=== PATIENT | male | born 1950 | race Caucasian/White ===

== ENCOUNTER 2017-01-06 11:24 | Emergency (ER) | payer SELFPAY ==
[2017-01-06] MEDS ORDERED: Acetaminophen TAB* 325 MG PO ONE (11:53)
--- NOTE | 2017-01-06 12:28 | ED ---
Upper Extremity Pain - HPI Summary HPI Summary: Patient presents after falling approximately 8 feet off a ladder. The ladder slid sideways when he went to step onto it. He tried to grab onto a sign with his left hand as it slide down the building. He landed on his feet and his back. He denies LOC or hitting his head. He got up after the fall and drove himself to the ED for evaluation. He has not taken anything for pain. He has pain on his upper back on both sides of his thoracic spine. His left hand hurts and he has altered sensation in the middle digit. He has an extensive history of hand and back injuries in the past. He is right handed. - History of Current Complaint Chief Complaint: EDExtremityUpper Stated Complaint: FALL OFF LADDER/BACK AND LT HANDPAIN Time Seen by Provider: 01/06/17 11:33 Hx Obtained From: Patient Mechanism Of Injury: Fall From Height Of: - approximately 8 feet Onset/Duration: Started Hours Ago Timing: Constant Severity Initially: Moderate Severity Currently: Moderate Pain Location: Hand - left Character: Dull, Aching Aggravating Factor(s): Movement Alleviating Factor(s): Rest Associated Signs & Symptoms: Positive: Back Pain. Negative: Chest Pain, Neck Pain Related History: Dominant Hand Right - Allergies/Home Medications Allergies/Adverse Reactions: Allergies Allergy/AdvReac Type Severity Reaction Status Date / Time Propoxyphene [From Darvon] AdvReac Nausea And Verified 01/06/17 11:46 Vomiting Home Medications: Home Medications Aspirin EC TAB* 325 mg PO DAILY 01/06/17 [History Confirmed 01/06/17] Atenolol TAB* 10 mg PO DAILY 01/06/17 [History Confirmed 01/06/17] Lisinopril TAB* 20 mg PO DAILY 01/06/17 [History Confirmed 01/06/17] Nitroglycerin TAB 0.4 MG* 1 tab PO SEE INSTRUCTIONS PRN 01/06/17 [History Confirmed 01/06/17] Omeprazole CAP* 1 cap PO DAILY 01/06/17 [History Confirmed 01/06/17] Tylenol 8 Hour Arthritis 1 tab PO Q8HR 01/06/17 [History Confirmed 01/06/17] Vitamin D TAB* 1 tab PO DAILY 01/06/17 [History Confirmed 01/06/17] PMH/Surg Hx/FS Hx/Imm Hx Previously Healthy: Yes Infectious Disease History: No Infectious Disease History: Denies: Traveled Outside the [place] in Last 30 Days - Family History Known Family History: Positive: Cardiac Disease, Hypertension - Social History Occupation: Employed Full-time Lives: With Family Alcohol Use: Occasionally Substance Use Type: Reports: None Smoking Status (MU): Former Smoker Review of Systems Negative: Fever, Chills Negative: Chest Pain Negative: Shortness Of Breath Negative: Abdominal Pain Positive: Myalgia - thoracic aspect of back lateral aspect bilaterally Positive: Paresthesia - left middle digit. Negative: Weakness, Numbness All Other Systems Reviewed And Are Negative: Yes Physical Exam Triage Information Reviewed: Yes Vital Signs On Initial Exam: Initial Vitals Temp Pulse Resp BP Pulse Ox 97.0 F 65 20 151/78 97 01/06/17 11:27 01/06/17 11:27 01/06/17 11:27 01/06/17 11:27 01/06/17 11:27 Vital Signs Reviewed: Yes Appearance: Positive: Well-Appearing, Well-Nourished, Pain Distress Skin: Positive: Warm, Skin Color Reflects Adequate Perfusion, Dry, Soft Head/Face: Positive: Normal Head/Face Inspection Eyes: Positive: EOMI, JAMIE, Conjunctiva Clear ENT: Positive: Hearing grossly normal Neck: Positive: Supple, Nontender Respiratory/Lung Sounds: Positive: Clear to Auscultation, Breath Sounds Present Cardiovascular: Positive: RRR Musculoskeletal: Positive: Limited @ - all digits of left hand move, but unable to form a loose fist; FROM bilateratal upper extremities, Pain @ - hypersensitivity to light touch on dorsum of left hand; TTP bilateral aspect of thoracic spine Neurological: Positive: Sensory/Motor Intact, Alert, Oriented to Person Place, Time, [place] Bundle Intact Distally, Normal Gait Psychiatric: Positive: Affect/Mood Appropriate AVPU Assessment: Alert - [place] Coma Scale Coma Scale Total: 15 Diagnostics - Vital Signs Vital Signs Temp Pulse Resp BP Pulse Ox 01/06/17 11:27 97.0 F 65 20 151/78 97 - Laboratory Lab Statement: Any lab studies that have been ordered have been reviewed, and results considered in the medical decision making process. - Radiology No standard instances Xray Interpretation: No Acute Changes Radiology Interpretation Completed By: Radiologist Course/Dx - Diagnoses Differential Diagnosis/HQI/PQRI: Positive: Arthritis, Bursitis, Contusion, Fracture (Closed), Hematoma, Strain, Sprain Provider Diagnoses: Contusion of left hand, Contusion of back wall of thorax Discharge - Discharge Plan Condition: Stable Disposition: HOME Patient Education Materials: Rib Contusion (ED), Contusion in Adults (ED) Forms: *Work Release Additional Instructions: Please use Tylenol and ice to help with pain. Elevate your hand above your heart to decrease swelling and perform gentle range of motion exercises for your hand. Follow-up with your regular provider if your symptoms do not begin to improve in the next 5-7 days. Return to the emergency department if symptoms worsen.
[2017-01-06 13:04] VITALS: BP 124/81
--- NOTE | 2017-01-06 13:09 | RAD ---
INDICATION: Left hand injury COMPARISON: None TECHNIQUE: AP, lateral, and oblique views were obtained. FINDINGS: No acute bony changes seen. There is soft tissue swelling over the dorsum of hand. There is a metallic density near the fifth MCP joint along the volar surface which is likely foreign body. IMPRESSION: NO ACUTE BONY CHANGE.
--- NOTE | 2017-01-06 13:25 | RAD ---
INDICATION: Fall. Rib pain COMPARISON: None TECHNIQUE: Multiple views of the ribs were obtained. FINDINGS: Bones: There is no evidence of acute rib fracture. LUNGS: The lungs are clear. There is no pneumothorax. Pleural spaces: There is no evidence of hemothorax. Other: None IMPRESSION: NO EVIDENCE OF ACUTE RIB FRACTURE.
== END 2017-01-06 13:50 | disposition home or self-care (01) ==
LOC: ED 11:24
DX: S60.222A Contusion of left hand, initial encounter (principal); S20.229A Contusion of unspecified back wall of thorax, initial encounter; R20.9 Unspecified disturbances of skin sensation; M79.1 Myalgia; W11.XXXA Fall on and from ladder, initial encounter; Y93.9 Activity, unspecified; Y92.9 Unspecified place or not applicable
CPT/HCPCS: 71111; 99282; A9270-GY